=== PATIENT | female | born 1980 | race Hispanic/Latino ===

== ENCOUNTER 2022-01-24 10:48 | Inpatient (IN) | payer OTHER ==
[2022-01-24] MEDS ORDERED: Morphine 4 MG/ML VIAL ONE (13:22)
[2022-01-24] MEDS ORDERED: Ketorolac Tromethamine 30 MG/ML VIAL ONE (13:22)
[2022-01-24] MEDS ORDERED: Ondansetron PF 4 MG/2 ML Vial ONE (13:22)
[2022-01-24] MEDS ORDERED: Lidocaine 1% (PF) 30 ML VIAL ONE (13:23)
[2022-01-24 13:50] LABS: #Basophils 0.1 thou/uL (0.0-0.2); #Eosinphils 0.1 thou/uL (0.0-0.7); #Lymphocytes 1.7 thou/uL (1.20-3.40); #Monocytes 0.5 thou/uL (0.11-0.59); #Neutrophils 8.5 thou/uL (1.40-6.50); %Basophils 0.9 % (0.0-1.0); %Eosinophils 1.3 % (0.0-10.0); %Lymphocytes 15.9 % (21.0-51.0); %Monocytes 4.2 % (0.0-10.0); %Neutrophils 77.6 % (42.0-75.0); Hemoglobin 13.9 g/dL (12.0-16.0); Mean Corpuscular HGB CONC 32.8 g/dL (32.0-36.0); Mean Corpuscular Volume 94.6 fL (78.0-98.0); Mean Platelet Volume 7.7 fL (7.4-10.4); Platelet Count 326 thou/uL (130-400); RBC Distribution Width 13.3 % (11.5-14.5); Red Blood Cell (RBC) Count 4.49 mill/uL (4.20-5.40); White Blood Cell (WBC) Count 10.9 thou/uL (4.8-10.8)
[2022-01-24 14:11] LABS: ALT (SGPT) 17 U/L (8-55); AST (SGOT) 19 U/L (5-34); Albumin 4.7 g/dL (3.5-5.0); Alkaline Phosphatase 69 U/L (40-110); Anion Gap 14 mmol/L (10-20); BUN (Urea Nitrogen) 12 mg/dL (7.0-18.7); Bilirubin, Total 0.3 mg/dL (0.2-1.2); Calc. Creatinine Clearance 0 mL/min (70-130); Carbon Dioxide 22 mmol/L (22-29); Chloride 105 mmol/L (98-107); Globulin 3.5 g/dL (2.4-3.5); Glucose 97 mg/dL (70-105); Potassium 3.7 mmol/L (3.5-5.1); Protein, Total 8.2 g/dL (6.0-8.3); Sodium 137 mmol/L (136-145)
[2022-01-24] MEDS ORDERED: Ondansetron PF 4 MG/2 ML Vial IVP PRN (16:55)
[2022-01-24] MEDS ORDERED: hydrALAZINE 20 MG/ML VIAL SLOW IVP PRN (16:55)
[2022-01-24] MEDS ORDERED: Morphine 4 MG/ML VIAL SLOW IVP PRN (16:55)
[2022-01-24] MEDS ORDERED: Dextrose 5% in Water 1,000 ML IV PRN (16:55)
[2022-01-24] MEDS ORDERED: Dextrose 50% Abboject 50 ML SYRINGE SLOW IVP PRN (16:55)
[2022-01-24] MEDS ORDERED: Cyclobenzaprine 10 MG TAB PO PRN (16:58)
[2022-01-24] MEDS ORDERED: traMADol HCl 50 MG TAB PO PRN (16:58)
[2022-01-24] MEDS ORDERED: ceFAZolin (BATCH) 2 GM in Premix Bag 1 BAG IVPB SCH (18:00)
[2022-01-24 21:22] VITALS: BMI 25.4
[2022-01-24] MEDS: Gabapentin 300 MG CAP PO SCH (21:22)
[2022-01-24] MEDS: Sodium Chloride 0.9% 1,000 ML IV SCH (21:22)
[2022-01-24] MEDS: Ibuprofen 200 MG TAB PO SCH (21:23)
[2022-01-24] MEDS: ceFAZolin (BATCH) 2 GM in Premix Bag 1 BAG IVPB SCH (21:24)
[2022-01-24] MEDS: Famotidine 20 MG TAB PO SCH (21:25)
[2022-01-24] MEDS: traMADol HCl 50 MG TAB PO SCH (21:26)
[2022-01-24] MEDS: Senokot S 8.6-50 MG TAB PO SCH (21:35)
[2022-01-24] MEDS: Acetaminophen 500 MG TAB PO SCH (21:43)
[2022-01-25] MEDS: Acetaminophen 500 MG TAB PO SCH ×4 (00:10→18:24)
[2022-01-25] MEDS: traMADol HCl 50 MG TAB PO SCH ×4 (02:17→20:08)
[2022-01-25] MEDS ORDERED: ceFAZolin (BATCH) 2 GM in Premix Bag 1 BAG IVPB SCH (03:00)
[2022-01-25] MEDS: Clindamycin/D5W 900 MG in Premix Bag 1 BAG IVPB SCH ×3 (03:55→18:25)
[2022-01-25] MEDS: Sodium Chloride 0.9% 1,000 ML IV SCH ×3 (03:58→17:27)
[2022-01-25 05:17] LABS: SARS-CoV-2 NAA Rapid Test Not Detected (NotDetected)
[2022-01-25] MEDS: ceFAZolin (BATCH) 2 GM in Premix Bag 1 BAG IVPB SCH ×3 (06:05→22:00)
[2022-01-25] MEDS: Ibuprofen 200 MG TAB PO SCH ×3 (06:05→21:59)
[2022-01-25 06:33] LABS: #Basophils 0.1 thou/uL (0.0-0.2); #Eosinphils 0.4 thou/uL (0.0-0.7); #Lymphocytes 2.7 thou/uL (1.20-3.40); #Monocytes 0.8 thou/uL (0.11-0.59); #Neutrophils 3.8 thou/uL (1.40-6.50); %Basophils 0.9 % (0.0-1.0); %Eosinophils 5.4 % (0.0-10.0); %Lymphocytes 34.5 % (21.0-51.0); %Monocytes 10.4 % (0.0-10.0); %Neutrophils 48.8 % (42.0-75.0); Hemoglobin 11.7 g/dL (12.0-16.0); Mean Corpuscular HGB CONC 33.4 g/dL (32.0-36.0); Mean Corpuscular Hemoglobin 32.1 pg (27.0-31.0); Mean Corpuscular Volume 96.3 fL (78.0-98.0); Mean Platelet Volume 7.7 fL (7.4-10.4); Platelet Count 291 thou/uL (130-400); RBC Distribution Width 13.2 % (11.5-14.5); Red Blood Cell (RBC) Count 3.65 mill/uL (4.20-5.40); White Blood Cell (WBC) Count 7.7 thou/uL (4.8-10.8)
[2022-01-25 06:58] LABS: Anion Gap 9 mmol/L (10-20); BUN (Urea Nitrogen) 15 mg/dL (7.0-18.7); CK (CPK) 172 U/L (29-168); Calc. Creatinine Clearance 119 mL/min (70-130); Calcium 7.8 mg/dL (7.8-10.44); Carbon Dioxide 23 mmol/L (22-29); Chloride 107 mmol/L (98-107); Glucose 114 mg/dL (70-105); Phosphorus 2.9 mg/dL (2.3-4.7); Potassium 3.4 mmol/L (3.5-5.1); Sodium 136 mmol/L (136-145)
[2022-01-25] MEDS: Famotidine 20 MG TAB PO SCH ×2 (08:30→20:08)
[2022-01-25] MEDS: Senokot S 8.6-50 MG TAB PO SCH ×2 (08:31→20:17)
[2022-01-25] MEDS: Polyethylene Glycol 3350 17 GM Packet PO SCH (08:31)
[2022-01-25] MEDS: Gabapentin 300 MG CAP PO SCH ×3 (08:31→20:08)
[2022-01-25] MEDS: Saccharomyces boulardii 250 MG CAP PO SCH (09:21)
[2022-01-25] MEDS ORDERED: Bacitracin Zinc Ointment 30 gm TUBE ONE (14:14)
[2022-01-25] MEDS ORDERED: Bupivacaine PF 0.5% 30 ML VIAL ONE (14:14)
[2022-01-25] MEDS ORDERED: Neomycin-Polymyxin 1 ML AMP ONE (14:14)
[2022-01-25] MEDS ORDERED: Midazolam HCl 2 mg/2 ml Vial ONE (14:48)
[2022-01-25] MEDS ORDERED: ceFAZolin (BATCH) 2 GM/100 ML BAG ONE (14:51)
[2022-01-25] MEDS ORDERED: Ketorolac Tromethamine 30 MG/ML VIAL ONE (15:11)
[2022-01-25] MEDS ORDERED: Dexamethasone 20 MG/5 ML VIAL ONE (15:11)
[2022-01-25] MEDS ORDERED: diphenhydrAMINE 50 MG/ML VIAL ONE (15:11)
[2022-01-25] MEDS ORDERED: Ondansetron PF 4 MG/2 ML Vial ONE (15:11)
[2022-01-25] MEDS ORDERED: PROPOFOL 200 MG/20 ML VIAL ONE (15:11)
[2022-01-25] MEDS ORDERED: Lidocaine 1% PF 5 ML VIAL ONE (15:11)
[2022-01-25] MEDS ORDERED: Morphine 4 MG/ML VIAL SLOW IVP PRN (18:22)
[2022-01-26] MEDS: Acetaminophen 500 MG TAB PO SCH ×3 (00:58→11:11)
[2022-01-26] MEDS: traMADol HCl 50 MG TAB PO SCH ×3 (00:59→14:09)
[2022-01-26] MEDS: Clindamycin/D5W 900 MG in Premix Bag 1 BAG IVPB SCH ×2 (02:47→11:11)
[2022-01-26] MEDS: Sodium Chloride 0.9% 1,000 ML IV SCH ×2 (02:47→11:42)
[2022-01-26] MEDS: Ibuprofen 200 MG TAB PO SCH ×2 (05:46→14:09)
[2022-01-26] MEDS: ceFAZolin (BATCH) 2 GM in Premix Bag 1 BAG IVPB SCH ×2 (05:46→14:10)
[2022-01-26 07:08] LABS: #Lymphocytes 2.1 thou/uL (1.20-3.40); #Monocytes 0.9 thou/uL (0.11-0.59); #Neutrophils 6.6 thou/uL (1.40-6.50); %Basophils 0.4 % (0.0-1.0); %Eosinophils 0.2 % (0.0-10.0); %Lymphocytes 21.4 % (21.0-51.0); %Monocytes 9.3 % (0.0-10.0); %Neutrophils 68.7 % (42.0-75.0); Hemoglobin 13.1 g/dL (12.0-16.0); Mean Corpuscular HGB CONC 33.7 g/dL (32.0-36.0); Mean Corpuscular Hemoglobin 32.6 pg (27.0-31.0); Mean Corpuscular Volume 96.7 fL (78.0-98.0); Mean Platelet Volume 7.9 fL (7.4-10.4); Platelet Count 291 thou/uL (130-400); RBC Distribution Width 13.3 % (11.5-14.5); Red Blood Cell (RBC) Count 4.01 mill/uL (4.20-5.40); White Blood Cell (WBC) Count 9.7 thou/uL (4.8-10.8)
[2022-01-26 07:24] LABS: Anion Gap 12 mmol/L (10-20); BUN (Urea Nitrogen) 9 mg/dL (7.0-18.7); Calc. Creatinine Clearance 114 mL/min (70-130); Calcium 7.7 mg/dL (7.8-10.44); Carbon Dioxide 22 mmol/L (22-29); Chloride 108 mmol/L (98-107); Glucose 96 mg/dL (70-105); Magnesium 2.1 mg/dL (1.6-2.6); Phosphorus 3.2 mg/dL (2.3-4.7); Potassium 3.5 mmol/L (3.5-5.1); Sodium 138 mmol/L (136-145)
[2022-01-26] MEDS: Gabapentin 300 MG CAP PO SCH ×2 (08:32→14:09)
[2022-01-26] MEDS: Senokot S 8.6-50 MG TAB PO SCH (08:32)
[2022-01-26] MEDS: Famotidine 20 MG TAB PO SCH (08:32)
[2022-01-26] MEDS: Saccharomyces boulardii 250 MG CAP PO SCH (08:32)
[2022-01-26] MEDS: Polyethylene Glycol 3350 17 GM Packet PO SCH (08:33)
[2022-01-26 12:44] VITALS: BP 115/76; TEMP 98.4
== END 2022-01-26 14:50 | disposition home or self-care (01) | DRG 906 ==
LOC: ERS 10:48 → SJJU 16:58
PROVIDERS: ADMIT Specialist; ATTEND Specialist
PROC: 0HQFXZZ Repair Right Hand Skin, External Approach (ICD-10-PCS; 2022-01-24)
PROC: 2W3EX1Z Immobilization of Right Hand using Splint (ICD-10-PCS; 2022-01-24)
PROC: 0LQ70ZZ Repair Right Hand Tendon, Open Approach (ICD-10-PCS; principal; 2022-01-25)
DX: S67.21XA Crushing injury of right hand, initial encounter (principal); S56.221A Laceration of other flexor muscle, fascia and tendon at forearm level, right arm, initial encounter; Z20.822 Contact with and (suspected) exposure to COVID-19; S62.91XA Unspecified fracture of right hand, initial encounter for closed fracture; S61.411A Laceration without foreign body of right hand, initial encounter; Z90.49 Acquired absence of other specified parts of digestive tract; Z98.51 Tubal ligation status; Z79.899 Other long term (current) drug therapy; W31.82XA Contact with other commercial machinery, initial encounter; Y92.69 Other specified industrial and construction area as the place of occurrence of the external cause; Y93.89 Activity, other specified; Y99.0 Civilian activity done for income or pay; Z90.710 Acquired absence of both cervix and uterus
CPT/HCPCS: 12001; 29125; 36415; 71045; 80048; 80053; 82550; 83735; 84100; 85025; 96374; 96375; J0690; J1100; J1200; J1885; J2001; J2250; J2270; J2405; J2704; J3490; J7050; S0020; U0002